=== PATIENT | male | born 1950 | race Caucasian/White ===

== ENCOUNTER 2016-07-03 14:26 | Emergency (ER) | payer MEDICARE, OTHER ==
[2016-07-03 14:52] VITALS: BP 151/82
[2016-07-03] MEDS ORDERED: Doxycycline 100 MG Cap PO ONE (15:25)
--- NOTE | 2016-07-03 15:32 | EDM.PDOC ---
ED HPI GENERAL MEDICAL PROBLEM - General Chief Complaint: Respiratory Problem Stated Complaint: COUGH, THROAT IRRITATION Time Seen by Provider: 07/03/16 14:57 Source of Information: Reports: Patient History Limitations: Reports: No Limitations - History of Present Illness INITIAL COMMENTS - FREE TEXT/NARRATIVE: Patient is a 65 year old male who presents to the E.D. complaining of two-week history of sinus congestion, mild sore throat, and productive cough. States symptoms have minimally improved over the course of these 2 weeks. States he has been exposed to multiple individuals with similar symptoms. Feeling generalized fatigue and has not been sleeping well at night secondary to cough. has noted no changes to his diet. States the sore throat is mild in nature. Denies any fever/chills, chest pain, shortness of breath, nausea/vomiting, generalized body aches, headache, or any additional complaints Onset: Other (2 wks prior) Duration: Constant, Waxing/Waning Location: Reports: Head, Face, Neck, Chest Severity: Mild Improves with: Reports: None Worsens with: Reports: None Context: Reports: Sick Contact Associated Symptoms: Reports: cough w sputum, Malaise. 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 (see below) (none stated) Throat Pain Score (Numeric/FACES): 3 - Related Data Allergies Allergy/AdvReac Type Severity Reaction Status Date / Time No Known Allergies Allergy Verified 07/03/16 14:55 Home Meds: Home Meds Atenolol [Tenormin] 25 mg PO DAILY 07/03/16 [History] Benzonatate [Tessalon Perles] 100 mg PO TID PRN #21 cap 07/03/16 [Rx] Doxycycline [Vibramycin] 100 mg PO Q12HR #13 cap 07/03/16 [Rx] Lisinopril 0 mg PO BID 07/03/16 [History] metFORMIN [Glucophage XR] 0 mg PO BID 07/03/16 [History] Past Medical History HEENT History: Reports: Retinal Detachment Cardiovascular History: Reports: Hypertension Endocrine/Metabolic History: Reports: Diabetes, Type II - Past Surgical History HEENT Surgical History: Reports: Cataract Surgery Social & Family History - Tobacco Use Smoking Status *Q: Current Some Day Smoker Years of Tobacco use: 10 Packs/Tins Daily: 1 - Caffeine Use Caffeine Use: Reports: Coffee, Soda - Recreational Drug Use Recreational Drug Use: No ED ROS GENERAL - Review of Systems Review Of Systems: See Below Constitutional: Reports: Malaise. Denies: Fever, Chills, Decreased Appetite HEENT: Reports: Rhinitis, Sinus Problem, Throat Pain. Denies: Ear Pain Respiratory: Reports: Cough, Sputum. Denies: Shortness of Breath Cardiovascular: Denies: Chest Pain, Dyspnea on Exertion, Palpitations GI/Abdominal: Denies: Abdominal Pain, Nausea, Vomiting Musculoskeletal: Reports: No Symptoms Neurological: Denies: Headache ED EXAM, GENERAL - Physical Exam Exam: See Below Exam Limited By: No Limitations General Appearance: Alert, WD/WN, No Apparent Distress Eye Exam: Left Eye: Conjunctival Injection (clear drainage), Bilateral Eye: PERRL Ears: Normal External Exam, Normal Canal, Hearing Grossly Normal, Normal TMs Nose: Nasal Swelling, Nasal Drainage, Clear Rhinorrhea Throat/Mouth: Normal Voice, No Airway Compromise, Other (mild erythema to posterior pharynx. no exudates snoted) Neck: Normal Inspection, Supple, Non-Tender, Lymphadenopathy (L), Lymphadenopathy (R) Respiratory/Chest: No Respiratory Distress, Lungs Clear, Normal Breath Sounds, Chest Non-Tender Cardiovascular: Normal Peripheral Pulses, Regular Rate, Rhythm Peripheral Pulses: 2+: Radial (R) GI/Abdominal: Normal Bowel Sounds, Soft, Non-Tender, No Organomegaly, No Distention Neurological: Alert, Oriented, CN II-XII Intact, Normal Cognition Psychiatric: Normal Affect, Normal Mood Skin Exam: Warm, Dry, Intact, Normal Color Course - Vital Signs Last Recorded V/S: Last Vital Signs Temp 98.1 F 07/03/16 14:51 Pulse 78 07/03/16 14:51 Resp 20 07/03/16 14:51 BP 151/82 H 07/03/16 14:51 Pulse Ox 97 07/03/16 14:51 - Orders/Labs/Meds Meds: Medications Discontinued Medications Generic Name Dose Route Start Last Admin Trade Name Freq PRN Reason Stop Dose Admin Doxycycline Hyclate 100 mg 07/03/16 15:25 07/03/16 15:38 Vibramycin PO 07/03/16 15:26 100 mg ONETIME ONE Administration - Re-Assessments/Exams Free Text/Narrative Re-Assessment/Exam: Due to the chronicity of symptoms I have ordered doxycycline 100 mg p.o. Will discharge patient home with instructions as documented and prescription for doxycycline and Tessalon Perles. 07/04/16 00:34 Departure - Departure Time of Disposition: 15:29 Disposition: Home, Self-Care 01 Condition: good Clinical Impression: URI with cough and congestion - Discharge Information Prescriptions: Doxycycline [Vibramycin] 100 mg PO Q12HR #13 cap Benzonatate [Tessalon Perles] 100 mg PO TID PRN #21 cap PRN Reason: Cough Instructions: Upper Respiratory Infection, Adult Referrals: PCP,Not In Area [Primary Care Provider] - Forms: ED Department Discharge Additional Instructions: Take doxycycline 100mg twice a day for 7 days. Take tessalon perles 1 tab three times a day for cough. Flonase 1 spray to each nare every a.m. Nasal Saline spray to each nare as needed for sinus congestion. Tylenol and Ibuprofen for pain. Push the fluids. Ensure adequate rest. Followup with PCP in 7 days if symptoms have not resolved. Return to the E.D. for any new or worsening symptoms.
== END 2016-07-03 15:45 | disposition home or self-care (01) ==
LOC: JD.ED 14:26
DX: J06.9 Acute upper respiratory infection, unspecified (principal); I10 Essential (primary) hypertension; E11.9 Type 2 diabetes mellitus without complications; F17.210 Nicotine dependence, cigarettes, uncomplicated; Z79.899 Other long term (current) drug therapy; Z98.49 Cataract extraction status, unspecified eye
CPT/HCPCS: 99283; A9270